=== PATIENT | female | born 1975 | race Caucasian/White ===

== ENCOUNTER → 2017-11-20 12:33 | Outpatient (CLI) | payer OTHER, SELFPAY ==
--- NOTE | 2017-11-20 12:39 | BI_ITS ---
MAMMOGRAPHY - BILATERAL SCREENING REASON FOR EXAM: Female, 41 years old. Routine annual screening examination. PERTINENT HISTORY: Aunt with breast cancer. TECHNIQUE: Digital bilateral breast ravi (3D mammographic acquisition) in the CC and MLO projections. 2-D mediolateral oblique (MLO) and craniocaudad (CC) views of both breasts were obtained. CAD: Full Field Digital Mammography with Computer Added Detection was performed. COMPARISON: None. Baseline examination. FINDINGS: Breast Composition: The breasts are extremely dense, which lowers the sensitivity of mammography. There are no dominant masses or suspicious calcifications. No other significant abnormalities are identified. BI/SCREENING MAMM (CAD), BILAT IMPRESSION: Negative screening mammogram. Yearly followup mammogram recommended. (A) ASSESSMENT CATEGORY: BIRADS Category 1: Negative. A letter regarding these results will be sent to the patient by the facility within 30 days. Approximately 10% of breast cancers are not detected by mammography. A normal mammogram should not delay biopsy of a clinically suspicious abnormality. [id number] Electronically Signed: Gabriel Prince MD at 13:52 EDT Tel [phone], Service support ,
== END ==
PROVIDERS: Family Provider Family Medicine; PCP Family Medicine; Visit Provider Family Medicine
DX: Z12.31 Encounter for screening mammogram for malignant neoplasm of breast (principal)
CPT/HCPCS: 77063; 77067

== ENCOUNTER → 2018-05-09 12:26 | Outpatient (CLI) | payer OTHER, SELFPAY ==
--- NOTE | 2018-05-09 12:28 | US_ITS ---
STUDY: ULTRASOUND OF THE FEMALE PELVIS - COMPLETE REASON FOR EXAM: Female, 42 years old. Menorrhagia. LMP: April 09, 2018. TECHNIQUE: Transabdominal and Transvaginal, the latter employing for improved detail. TECHNICAL QUALITY: Adequate. COMPARISON: None. FINDINGS: The uterus is anteverted and is in a midline position. The uterus measures 10.1 x 6.8 x 6.3 cm. There is a Nabothian cyst of the cervix. The endometrium measures 15.2 mm in thickness, and is hyperechoic. There is trace fluid in the endometrial cavity, but no demonstrated endometrial mass. There is no demonstrated myometrial mass. I.U.D. - The patient does not have an I.U.D. The right ovary is visualized. The right ovary measures 3.4 x 2.8 x 1.5 cm. Loops of peristalsing bowel were identified in the right lower quadrant. There is no right ovarian cyst or ovarian mass. There is no visualized right adnexal mass or complex lesion. There is normal arterial and normal venous vascularity. The left ovary is visualized only on transabdominal imaging. The left ovary measures 4.7 x 2.3 x 1.8 cm. This includes a well-defined hypoechoic 1.2 x 1.4 x 1.2 cm structure. There is no visualized left adnexal mass or complex lesion. There is normal arterial and normal venous vascularity. There is no fluid in the cul-de-sac. The pre void volume of the bladder was 681 ml. Polycystic ovary disease: No. US/Pelvic (Non ) IMPRESSION: 1. Thickened endometrium with trace fluid in the endometrial cavity. This may reflect physiologic change, and one might consider follow up immediately following the next 1-2 menstrual cycle to document normal physiologic thinning. 2. 1.4 cm well-defined hypoechoic lesion in the left ovary, likely a complicated cyst, likely physiologic. This also could be reassessed on a short interval follow-up study. 3. Unremarkable right ovary. Electronically Signed: Tim Gibbons MD at 12:32 EST , Service support ,
--- NOTE | 2018-05-09 12:28 | US_ITS ---
STUDY: ULTRASOUND OF THE FEMALE PELVIS - COMPLETE REASON FOR EXAM: Female, 42 years old. Menorrhagia. LMP: April 09, 2018. TECHNIQUE: Transabdominal and Transvaginal, the latter employing for improved detail. TECHNICAL QUALITY: Adequate. COMPARISON: None. FINDINGS: The uterus is anteverted and is in a midline position. The uterus measures 10.1 x 6.8 x 6.3 cm. There is a Nabothian cyst of the cervix. The endometrium measures 15.2 mm in thickness, and is hyperechoic. There is trace fluid in the endometrial cavity, but no demonstrated endometrial mass. There is no demonstrated myometrial mass. I.U.D. - The patient does not have an I.U.D. The right ovary is visualized. The right ovary measures 3.4 x 2.8 x 1.5 cm. Loops of peristalsing bowel were identified in the right lower quadrant. There is no right ovarian cyst or ovarian mass. There is no visualized right adnexal mass or complex lesion. There is normal arterial and normal venous vascularity. The left ovary is visualized only on transabdominal imaging. The left ovary measures 4.7 x 2.3 x 1.8 cm. This includes a well-defined hypoechoic 1.2 x 1.4 x 1.2 cm structure. There is no visualized left adnexal mass or complex lesion. There is normal arterial and normal venous vascularity. There is no fluid in the cul-de-sac. The pre void volume of the bladder was 681 ml. Polycystic ovary disease: No. US/Transvaginal Non- IMPRESSION: 1. Thickened endometrium with trace fluid in the endometrial cavity. This may reflect physiologic change, and one might consider follow up immediately following the next 1-2 menstrual cycle to document normal physiologic thinning. 2. 1.4 cm well-defined hypoechoic lesion in the left ovary, likely a complicated cyst, likely physiologic. This also could be reassessed on a short interval follow-up study. 3. Unremarkable right ovary. Electronically Signed: Tim Gibbons MD at 12:32 EST , Service support ,
--- OUTSIDE RECORDS SUMMARY | 2018-06-25 07:29 | XMS RPT_ITS ---
:1975 Author Organization [facility] Care Team Providers Name Role Phone Bonifacio Hicks Attending Unavailable Bonifacio Hicks Referring Unavailable Bonifacio Hicks Primary Care Unavailable Bonifacio Hicks Attending Unavailable Bonifacio Hicks Primary Care Unavailable Bonifacio Hicks Attending Unavailable Bonifacio Hikcs Referring Unavailable Bonifacio Hicks Primary Care Unavailable PROBLEMS PROBLEMS No Problem Records FoundPROCEDURES PROCEDURES No Procedure Records FoundRESULTS RESULTS TRANSVAGINAL Observed: 05/22/2018 Status: F Source: [place] NON- 12:02 PM [facility] Imaging Services [address] [place] [address] Transvaginal Non- MR#: [id number] Acct: [id number] Name: RICHY GOULD Rep #: [id number] : 1975 F 42 From: Ramiro Bolivar MD PCP: Bonifacio Hicks MD Status: REG CLI Study: Transvaginal Non- Date of Exam: 05/22/18 Exam# [id number] Ordering Dr: Bonifacio Hicks MD STUDY: ULTRASOUND OF THE FEMALE PELVIS - COMPLETE REASON FOR EXAM: Female, 42 years old. Menorrhagia LMP: 05/16/2018 TECHNIQUE: Transabdominal and Transvaginal TECHNICAL QUALITY: Adequate. COMPARISON: 05/09/2018 FINDINGS: The uterus is anteverted and is in a midline position. The uterus measures 9.8 x 5.9 x 5.2 cm. The endometrium measures 15 mm in thickness, and is hyperechoic. There is no demonstrated endometrial mass. There is no demonstrated myometrial mass. I.U.D. - The patient does not have an I.U.D. The right ovary is visualized. The right ovary measures 2.8 x 2.6 x 1.9 cm. 16 x 18 x 15 mm cyst. There is no visualized right adnexal mass or complex lesion. There is normal arterial and normal venous vascularity. The left ovary is visualized. The left ovary measures 3.4 x 3.1 x 2.1 cm. 20 x 10 x 16 mm cyst. There is no visualized left adnexal mass or complex lesion. There is normal arterial and normal venous vascularity. There is no fluid in the cul-de-sac. The pre void volume of the bladder was 50.6 ml. Polycystic ovary disease: No. US/Transvaginal Non- IMPRESSION: Interval resolution of endometrial fluid. Stable endometrial thickness. Electronically Signed: Ramiro Bolivar MD at 5:07 EST Tel , Service support , CC: Bonifacio Hicks MD Training Mgr: Signed PELVIC (NON ) Observed: 05/22/2018 Status: F Source: [place] 12:02 PM [facility] Imaging Services [address] [place] [address] Pelvic (Non ) MR#: [id number] Acct: [id number] Name: RICHY GOULD Rep #: [id number] : 1975 F 42 From: Ramiro Boilvar MD PCP: Bonifacio Hicks MD Status: REG CLI Study: Pelvic (Non ) Date of Exam: 05/22/18 Exam# [id number] Ordering Dr: Bonifacio Hicks MD STUDY: ULTRASOUND OF THE FEMALE PELVIS - COMPLETE REASON FOR EXAM: Female, 42 years old. Menorrhagia LMP: 05/16/2018 TECHNIQUE: Transabdominal and Transvaginal TECHNICAL QUALITY: Adequate. COMPARISON: 05/09/2018 FINDINGS: The uterus is anteverted and is in a midline position. The uterus measures 9.8 x 5.9 x 5.2 cm. The endometrium measures 15 mm in thickness, and is hyperechoic. There is no demonstrated endometrial mass. There is no demonstrated myometrial mass. I.U.D. - The patient does not have an I.U.D. The right ovary is visualized. The right ovary measures 2.8 x 2.6 x 1.9 cm. 16 x 18 x 15 mm cyst. There is no visualized right adnexal mass or complex lesion. There is normal arterial and normal venous vascularity. The left ovary is visualized. The left ovary measures 3.4 x 3.1 x 2.1 cm. 20 x 10 x 16 mm cyst. There is no visualized left adnexal mass or complex lesion. There is normal arterial and normal venous vascularity. There is no fluid in the cul-de-sac. The pre void volume of the bladder was 50.6 ml. Polycystic ovary disease: No. US/Pelvic (Non ) IMPRESSION: Interval resolution of endometrial fluid. Stable endometrial thickness. Electronically Signed: Ramiro Bolivar MD at 5:07 EST Tel , Service support , CC: Bonifacio Hicks MD Training Mgr: Signed TRANSVAGINAL Observed: 05/09/2018 Status: F Source: [place] NON- 12:32 PM [facility] Imaging Services [address] [place] [address] Transvaginal Non- MR#: [id number] Acct: [id number] Name: RICHY GOULD Rep #: [id number] : 1975 F 42 From: Ilir Gibbons MD PCP: Bonifacio Hicks MD Status: REG CLI Study: Transvaginal Non- Date of Exam: 05/09/18 Exam# [id number] Ordering Dr: Bonifacio Hicks MD STUDY: ULTRASOUND OF THE FEMALE PELVIS - COMPLETE REASON FOR EXAM: Female, 42 years old. Menorrhagia. LMP: April 09, 2018. TECHNIQUE: Transabdominal and Transvaginal, the latter employing for improved detail. TECHNICAL QUALITY: Adequate. COMPARISON: None. FINDINGS: The uterus is anteverted and is in a midline position. The uterus measures 10.1 x 6.8 x 6.3 cm. There is a Nabothian cyst of the cervix. The endometrium measures 15.2 mm in thickness, and is hyperechoic. There is trace fluid in the endometrial cavity, but no demonstrated endometrial mass. There is no demonstrated myometrial mass. I.U.D. - The patient does not have an I.U.D. The right ovary is visualized. The right ovary measures 3.4 x 2.8 x 1.5 cm. Loops of peristalsing bowel were identified in the right lower quadrant. There is no right ovarian cyst or ovarian mass. There is no visualized right adnexal mass or complex lesion. There is normal arterial and normal venous vascularity. The left ovary is visualized only on transabdominal imaging. The left ovary measures 4.7 x 2.3 x 1.8 cm. This includes a well-defined hypoechoic 1.2 x 1.4 x 1.2 cm structure. There is no visualized left adnexal mass or complex lesion. There is normal arterial and normal venous vascularity. There is no fluid in the cul-de-sac. The pre void volume of the bladder was 681 ml. Polycystic ovary disease: No. US/Transvaginal Non- IMPRESSION: 1. Thickened endometrium with trace fluid in the endometrial cavity. This may reflect physiologic change, and one might consider follow up immediately following the next 1-2 menstrual cycle to document normal physiologic thinning. 2. 1.4 cm well-defined hypoechoic lesion in the left ovary, likely a complicated cyst, likely physiologic. This also could be reassessed on a short interval follow-up study. 3. Unremarkable right ovary. Electronically Signed: Tim Gibbons MD at 12:32 EST , Service support , CC: Bonifacio Hicks MD Training Mgr: Signed PELVIC (NON ) Observed: 05/09/2018 Status: F Source: [place] 12:32 PM [facility] Imaging Services [address] [place] [address] Pelvic (Non ) MR#: [id number] Acct: [id number] Name: RICHY GOULD Rep #: [id number] : 1975 F 42 From: Ilir Gibbons MD PCP: Bonifacio Hicks MD Status: REG CLI Study: Pelvic (Non ) Date of Exam: 05/09/18 Exam# [id number] Ordering Dr: Bonifacio Hicks MD STUDY: ULTRASOUND OF THE FEMALE PELVIS - COMPLETE REASON FOR EXAM: Female, 42 years old. Menorrhagia. LMP: April 09, 2018. TECHNIQUE: Transabdominal and Transvaginal, the latter employing for improved detail. TECHNICAL QUALITY: Adequate. COMPARISON: None. FINDINGS: The uterus is anteverted and is in a midline position. The uterus measures 10.1 x 6.8 x 6.3 cm. There is a Nabothian cyst of the cervix. The endometrium measures 15.2 mm in thickness, and is hyperechoic. There is trace fluid in the endometrial cavity, but no demonstrated endometrial mass. There is no demonstrated myometrial mass. I.U.D. - The patient does not have an I.U.D. The right ovary is visualized. The right ovary measures 3.4 x 2.8 x 1.5 cm. Loops of peristalsing bowel were identified in the right lower quadrant. There is no right ovarian cyst or ovarian mass. There is no visualized right adnexal mass or complex lesion. There is normal arterial and normal venous vascularity. The left ovary is visualized only on transabdominal imaging. The left ovary measures 4.7 x 2.3 x 1.8 cm. This includes a well-defined hypoechoic 1.2 x 1.4 x 1.2 cm structure. There is no visualized left adnexal mass or complex lesion. There is normal arterial and normal venous vascularity. There is no fluid in the cul-de-sac. The pre void volume of the bladder was 681 ml. Polycystic ovary disease: No. US/Pelvic (Non ) IMPRESSION: 1. Thickened endometrium with trace fluid in the endometrial cavity. This may reflect physiologic change, and one might consider follow up immediately following the next 1-2 menstrual cycle to document normal physiologic thinning. 2. 1.4 cm well-defined hypoechoic lesion in the left ovary, likely a complicated cyst, likely physiologic. This also could be reassessed on a short interval follow-up study. 3. Unremarkable right ovary. Electronically Signed: Tim Gibbons MD at 12:32 EST , Service support , CC: Bonifacio Hicks MD Training Mgr: Signed SCREENING MAMM (CAD), Observed: 11/20/2017 Status: F Source: [place] 12:39 PM [facility] Imaging Services [address] [place] [address] SCREENING MAMM (CAD), BILEKTA MR#: [id number] Acct: [id number] Name: RICHY GOULD Rep #: [id number] : 1975 F 41 From: Gabriel Prince MD PCP: Bonifacio Hicks MD Status: REG CLI Study: SCREENING MAMM (CAD), BILAT Date of Exam: 11/20/17 Exam# [id number] Ordering Dr: Bonifacio Hicks MD MAMMOGRAPHY - BILATERAL SCREENING REASON FOR EXAM: Female, 41 years old. Routine annual screening examination. PERTINENT HISTORY: Aunt with breast cancer. TECHNIQUE: Digital bilateral breast ravi (3D mammographic acquisition) in the CC and MLO projections. 2-D mediolateral oblique (MLO) and craniocaudad (CC) views of both breasts were obtained. CAD: Full Field Digital Mammography with Computer Added Detection was performed. COMPARISON: None. Baseline examination. FINDINGS: Breast Composition: The breasts are extremely dense, which lowers the sensitivity of mammography. There are no dominant masses or suspicious calcifications. No other significant abnormalities are identified. BI/SCREENING MAMM (CAD), BILAT IMPRESSION: Negative screening mammogram. Yearly followup mammogram recommended. (A) ASSESSMENT CATEGORY: BIRADS Category 1: Negative. A letter regarding these results will be sent to the patient by the facility within 30 days. Approximately 10% of breast cancers are not detected by mammography. A normal mammogram should not delay biopsy of a clinically suspicious abnormality. [id number] Electronically Signed: Gabriel Prince MD at 13:52 EDT Tel [phone], Service support , CC: Bonifacio Hicks MD Training Mgr: Signed ALLERGIES ALLERGIES No Allergies Records FoundENCOUNTERS ENCOUNTERS ADMIT/DISCHARGE ACCOUNT ADMITTING ENCOUNTER LOCATION SOURCE NUMBER CLASS 05/22/2018 [id number] Amb[place] [facility] ing:US Repository 05/09/2018 [id number] Ambulatory [place] [facility] ing:OPUS Repository 11/20/2017 [id number] Ambulatory [place] 5 [facility] ing:OPBI Repository PAYERS PAYERS ENCOUNTER GUARANTOR PAYER SUBSCRIBER SOURCE 05/22/2018 RICHY A Primary RICHY A [place] [id number] Insurance:[employer] SNYDERDOB: [facility] CARE [address]lk [id number] Number: Repository [address]Rub: 330 [id number] [phone] () Date:[id number] [address] [address]SP: 05/22/2018 Secondary NOT GIVENUNK [place] Insurance:SELF PAY [facility] Number: Effective Repository Date:2018-05-13 05/09/2018 RICHY A Primary RICHY A [place] [id number] [facility] SN[facility]DERD[facility]: [place] [id number] Number: Repository [id number]: 330 [id number] [phone] () Date:[id number] [place] [id number]: 05/09/2018 Secondary NOT GIVENUNK [place] Insurance:SELF PAY [facility] Number: Effective Repository Date:2018-05-03 11/20/2017 RICHY A Primary RICHY A [place] [id number] [facility] SNYDERDOB: [address] [id number] Number: Repository [id number]: 330 [id number] [phone] () Date:2806-26-92[address] [place] [id number]: 11/20/2017 Secondary NOT GIVENUNK [place] Insurance:SELF PAY [facility] Number: Effective Repository Date:2017-11-02
== END ==
PROVIDERS: Family Provider Family Medicine; PCP Family Medicine; Referring Provider Family Medicine; Visit Provider Family Medicine
DX: N92.0 Excessive and frequent menstruation with regular cycle (principal)
CPT/HCPCS: 76830; 76856; 93976

== ENCOUNTER → 2018-05-22 12:00 | Outpatient (CLI) | payer OTHER, SELFPAY ==
--- NOTE | 2018-05-22 12:02 | US_ITS ---
STUDY: ULTRASOUND OF THE FEMALE PELVIS - COMPLETE REASON FOR EXAM: Female, 42 years old. Menorrhagia LMP: 05/16/2018 TECHNIQUE: Transabdominal and Transvaginal TECHNICAL QUALITY: Adequate. COMPARISON: 05/09/2018 FINDINGS: The uterus is anteverted and is in a midline position. The uterus measures 9.8 x 5.9 x 5.2 cm. The endometrium measures 15 mm in thickness, and is hyperechoic. There is no demonstrated endometrial mass. There is no demonstrated myometrial mass. I.U.D. - The patient does not have an I.U.D. The right ovary is visualized. The right ovary measures 2.8 x 2.6 x 1.9 cm. 16 x 18 x 15 mm cyst. There is no visualized right adnexal mass or complex lesion. There is normal arterial and normal venous vascularity. The left ovary is visualized. The left ovary measures 3.4 x 3.1 x 2.1 cm. 20 x 10 x 16 mm cyst. There is no visualized left adnexal mass or complex lesion. There is normal arterial and normal venous vascularity. There is no fluid in the cul-de-sac. The pre void volume of the bladder was 50.6 ml. Polycystic ovary disease: No. US/Transvaginal Non- IMPRESSION: Interval resolution of endometrial fluid. Stable endometrial thickness. Electronically Signed: Ramiro Bolivar MD at 5:07 EST Tel , Service support ,
--- NOTE | 2018-05-22 12:02 | US_ITS ---
STUDY: ULTRASOUND OF THE FEMALE PELVIS - COMPLETE REASON FOR EXAM: Female, 42 years old. Menorrhagia LMP: 05/16/2018 TECHNIQUE: Transabdominal and Transvaginal TECHNICAL QUALITY: Adequate. COMPARISON: 05/09/2018 FINDINGS: The uterus is anteverted and is in a midline position. The uterus measures 9.8 x 5.9 x 5.2 cm. The endometrium measures 15 mm in thickness, and is hyperechoic. There is no demonstrated endometrial mass. There is no demonstrated myometrial mass. I.U.D. - The patient does not have an I.U.D. The right ovary is visualized. The right ovary measures 2.8 x 2.6 x 1.9 cm. 16 x 18 x 15 mm cyst. There is no visualized right adnexal mass or complex lesion. There is normal arterial and normal venous vascularity. The left ovary is visualized. The left ovary measures 3.4 x 3.1 x 2.1 cm. 20 x 10 x 16 mm cyst. There is no visualized left adnexal mass or complex lesion. There is normal arterial and normal venous vascularity. There is no fluid in the cul-de-sac. The pre void volume of the bladder was 50.6 ml. Polycystic ovary disease: No. US/Pelvic (Non ) IMPRESSION: Interval resolution of endometrial fluid. Stable endometrial thickness. Electronically Signed: Ramiro Bolivar MD at 5:07 EST Tel , Service support ,
== END ==
PROVIDERS: Family Provider Family Medicine; PCP Family Medicine; Referring Provider Family Medicine; Visit Provider Family Medicine
DX: N92.0 Excessive and frequent menstruation with regular cycle (principal)
CPT/HCPCS: 76830; 76856; 93976

== ENCOUNTER → 2021-05-07 08:14 | Outpatient (CLI) | payer OTHER, SELFPAY ==
--- NOTE | 2021-05-07 08:16 | BI_ITS ---
MAMMOGRAPHY - BILATERAL SCREENING REASON FOR EXAM: Female, 45 years old. Routine annual screening examination. PERTINENT HISTORY: Aunt with breast cancer. TECHNIQUE: Digital bilateral breast kerline (3D mammographic acquisition) in the CC and MLO projections. 2-D mediolateral oblique (MLO) and craniocaudad (CC) views of both breasts were obtained. CAD: Full Field Digital Mammography with Computer Added Detection was performed. COMPARISON: Comparison is made with prior study dated 11/20/2017. FINDINGS: Breast Composition: The breasts are extremely dense, which lowers the sensitivity of mammography. There are no dominant masses or suspicious calcifications. No other significant abnormalities are identified. There has been no significant change since the prior study. BI/SCRN MAMM (CAD)W/KERLINE BILAT IMPRESSION: Stable bilateral screening mammogram. Yearly follow-up mammogram recommended. (A) ASSESSMENT CATEGORY: BIRADS Category 1: Negative. A letter regarding these results will be sent to the patient by the facility within 30 days. Approximately 10% of breast cancers are not detected by mammography. A normal mammogram should not delay biopsy of a clinically suspicious abnormality. [id number] Electronically Signed: Gabriel Prince MD at 8:33 EST , Service support ,
[2021-05-07 09:07] LABS: Absolute Lymphocyte Count 1.39 X10^3/uL (0.83-4.51); Absolute Neutrophil Count 6.2 X10^3/uL (2.0-7.7); Basophil# 0.06 X10^3/uL; Basophil% 0.7 % (0-1); Eosinophil# 0.08 X10^3/uL; Eosinophils% 0.9 % (0-5); Hemoglobin 11.8 g/dL (12.0-15.0); Lymphocyte # 1.39 X10^3/ul (0.83-4.51); Lymphocyte % 16.1 % (19-41); Mean Corp Hgb Conc 32.8 g/dL (32-36); Mean Corpuscular Hgb 32.2 pg (27.0-32.0); Mean Corpuscular Volume 98.4 fL (81-99); Mean Platelet Vol. 10.8 fl (6.2-12.0); Monocyte# 0.93 X10^3/uL; Monocyte% 10.7 % (0-10); NRBC Flagged by Analyzer 0 % (0-5); Neutrophil # 6.15 X10^3/uL (2.7-7.7); Platelet Count 254 K/mm3 (150-450); RBC Distribution Width CV 13.9 % (11.6-14.6); RBC Distribution Width SD 50.6 fl (35.1-43.9); Red Blood Count 3.66 M/mm3 (4.2-5.4); White Blood Count 8.7 K/mm3 (4.4-11.0)
[2021-05-07 09:45] LABS: ALB/GLOB Ratio 0.9 RATIO (0.9-2.4); AST(SGOT) 14 U/L (15-37); Alanine Aminotransfer ALT/SGPT 17 U/L (13-56); Albumin, Serum 3.3 g/dL (3.2-5.0); Alkaline Phosphatase 65 U/L (45-117); Anion Gap 6 (5-15); BUN 11 mg/dL (7-18); Calcium,Total 8.2 mg/dL (8.5-10.1); Chloride 107 mmol/L (98-107); Cholesterol 131 mg/dL (200); Creatinine, Serum 0.73 mg/dL (0.55-1.02); EST Glomerular Filtration Rate 92 mL/min (>60); Est Glom Filt Rate - Afr Amer 111 mL/min (>60); Globulin 3.8 g/dL (2.2-4.2); Glucose 92 mg/dL (74-106); High Density Lipoprotein 45 mg/dL; Potassium 3.8 mmol/L (3.5-5.1); Protein, Total 7.1 g/dL (6.4-8.2); Sodium Level 140 mmol/L (136-145); Thyroid Stim Hormone (TSH) 9.27 uIU/mL (0.358-3.74); Triglycerides 68 mg/dL; Very Low Density Lipoprotein 14 mg/dL (5-40)
== END ==
PROVIDERS: PCP Family Medicine; Referring Provider Family Medicine; Visit Provider Family Medicine
DX: Z12.31 Encounter for screening mammogram for malignant neoplasm of breast (principal); E03.9 Hypothyroidism, unspecified; Z80.3 Family history of malignant neoplasm of breast
CPT/HCPCS: 36415; 77063; 77067; 80053; 80061; 84443; 85025

== ENCOUNTER 2022-11-16 11:52 | Day surgery (SDC) | payer OTHER, SELFPAY ==
--- NOTE | 2022-11-15 17:20 | PCM.HP.BLA ---
History and Physical Date of Admission: 11/16/22 Pre-Op History and Physical ? HPI: The patient is a 46 year old female presenting for pre-operative visit. She is scheduled for Hysteroscopy D&C and polypectom with symphion and hilda endoemtrial ablation , for AUB, endometrial polyp on 11/16/22. Procedure discussed along with risks, benefits and complications. Other alternatives discussed for management. Consent form signed? Yes. ? ? PAST MEDICAL HISTORY PAST MEDICAL HISTORY Diagnosis Date ? Acute sinusitis 09/20/2020 ? Anxiety 01/04/2017 ? Depression 01/04/2017 ? Hypothyroid ? ? IBS (irritable bowel syndrome) ? ? Immunization due 12/19/2018 ? Menorrhagia 05/03/2018 ? Well adult health check 10/29/2017 ? ? PAST SURGICAL HISTORY PAST SURGICAL HISTORY Procedure Laterality Date ? TUBAL LIGATION HX ? CURRENT MEDICATIONS Current Outpatient Medications Medication Sig Dispense Refill ? levothyroxine (SYNTHROID) 137 mcg tablet Take 1 tablet by mouth once daily. 90 tablet 3 ? No current facility-administered medications for this visit. ? ? ALLERGIES: Cefdinir, Doxycycline, Peanuts, and Tree Nuts ? PERSONAL HISTORY: SOCIAL HISTORY Social History ? Tobacco Use ? Smoking status: Every Day ? ? Years: 20.00 ? ? Types: Cigarettes ? Smokeless tobacco: Never Vaping Use ? Vaping Use: Never used Substance Use Topics ? Alcohol use: Not Currently ? Drug use: Never ? FAMILY HISTORY: FAMILY HISTORY No family history on file. ? REVIEW OF SYMPTOMS: negative except as noted above PHYSICAL EXAMINATION: ? VITALS: Blood pressure 100/62, weight 151 lb (68.5 kg), last menstrual period 10/31/2022. ? GENERAL: The patient is well nourished, well hydrated in no acute distress. , The patient is oriented to time, place, and person. NECK: full range of motion ? GENITALIA: Normal external genitalia, Urethral meatus normal, Bladder nontender, normal vagina and normal vaginal tone, normal cervix, normal uterus, size and consistency, normal adnexa without masses or tenderness, and perineum WNL ? ? IMPRESSION: AUB, heavy menses, endometrial Polyp ? PLAN: Hysteroscopy, D&C, Polypectomy, D&C, endometrial Ablation ? Pt has been counseled on risks/benefits and alternatives of surgery including but not limited to anesthesia, bleeding, infection, uterine perforation with subsequent injury to pelvic structures including bowel, bladder, ureters and vessels. Pt wishes to proceed with surgery at this time. Consent signed Pre and post op instructions reviewed ? Emb performed today ? I have reviewed and updated past medical and surgical history, medications and allergies Kamryn Fonseca MD ?1:18 PM
[2022-11-16 12:20] VITALS: BP 97/53; PULSE 66; RESP 16; TEMP 36.6; O2SAT 100; BMI 20.6
[2022-11-16 12:22] LABS: Internal QC Validated? YES +Cl - CLEAR BKGD; Pregnancy, Urine Negative Negative
[2022-11-16] MEDS: Lactated Ringers 1,000 ML 15 ML IV (12:30)
[2022-11-16 12:45] LABS: Hematocrit 41.2 % (37-47); Mean Corpuscular Hgb 33.3 pg (27.0-32.0); Mean Corpuscular Volume 97.9 fL (81-99); Mean Platelet Vol. 10.5 fl (6.2-12.0); Platelet Count 277 K/mm3 (150-450); RBC Distribution Width CV 13.8 % (11.6-14.6); RBC Distribution Width SD 49.1 fl (35.1-43.9); Red Blood Count 4.21 M/mm3 (4.2-5.4); White Blood Count 7.3 K/mm3 (4.4-11.0)
--- NOTE | 2022-11-16 13:35 | EMB_PTH ---
PATIENT: RICHY GOULD LOC: [facility] U#:[id number] AGE/SX: 46/F ROOM: RE11/16/[address]: Dr. Kamryn Garrido, MDDOB: 1975 BED: DIS: 11/16/2022 SPEC #: [id number] RECD: 11/16/22 16:15 STATUS: YULISSA VIJAY #: [id number] LAITH: 11/16/22 13:[address]: Kamryn Garrido DEPT: SURGICAL PATHOLOGY RECD BY: Monica Tatum ENTERED: 11/17/22 07:39 SP TYPE: ENDOM BX/C DARYNHR DR: Dr. Bonifacio Hicks MD Tissues: Endometrium, NOS Procedures: Surgery Specimen Level IV HEADER OPERATION: Hysteroscopy, D & C, polypectomy, endometrial ablation, Symphion PRE-OP DIAGNOSIS: Abnormal uterine bleeding, endometrial polyp TISSUE SUBMITTED: Endometrial curettings, polyp, tissue MICROSCOPIC DIAGNOSIS Endometrial curettings and polyp: Polypoid fragments of benign secretory endometrium. Rare fragments of benign endocervix and squamous mucosa. AM:klever 11/20/2022 MICROSCOPIC DESCRIPTION Slides are reviewed. GROSS DESCRIPTION Received in fixative is one container labeled with the patient's name and designated endometrial curettings and polyp. The specimen consists of multiple irregular fragments of dark mccarty soft tissue that in aggregate measure 5.0 x 5.0 x 0.2 cm. The specimen is totally submitted in two cassettes. / AM:klever 11/17/2022 TC:5 CPT: 50520
--- NOTE | 2022-11-16 14:22 | DCINST_ITS ---
Discharge Instructions Procedure D&C Diet Discharge Diet: No restrictions Activity May resume sexual activity in: 1 week Dressing / Incision Call your doctor if you observe: Fever of 101 or Higher, Inability to urinate, Using more than 1 pad per hour and Uncontrolled pain Follow Up Care Please Follow Up With: Kamryn Garrido MD When: 1-2 weeks post OP if you need an appointment please call [phone] Test Results: Test results from this visit will be discussed in further detail at your follow- up appointment, if applicable. Discharge Plan Admission Attending Provider: Kamryn Garrido Primary Care Provider: Bonifacio Hicks Discharge Orders/Prescriptions Prescriptions: No Action levothyroxine 125 mcg Tablet 137 mcg PO DAILY Referrals / Follow Up: Bonifacio Hicks MD [Primary Care Provider] - Disposition Disposition (needs filled in before D/C Order can be placed): Home, Self Care
--- NOTE | 2022-11-16 14:23 | OP.PCM_ITS ---
Report of Operation Date of Procedure: 11/16/22 Pre-Operative Diagnosis: AUB, Endometrial polyp Post-Operative Diagnosis: same Surgery/Procedure Performed:: hysteroscopy, D&C, polypectomy, Nettie endometrial ablation Description of Surgical Findings:: Thickened endometrium with polypoid appearing tissiue Surgeon: Kamryn Garrido job change crew member: None Type of Anesthesia: MAC Specimen's removed: endometrial curettings, endometrial polyps Estimated Blood Loss (mL): 5cc Fluids Replaced: 500 Description of Procedure: after informed consent was obtained patient taken to the operating room she is placed in supine position she is given anesthesia simply self insert she is prepped draped normal sterile fashion. Bladder was drained prior to the start of the procedure. At this time the weighted speculum was placed the posterior fornix of the vagina then a single-tooth tenaculum was used to grasp the anterior lip of the cervix. At this time the uterus was sounded to approximately8 cm the endocervical canal sounded to 3.5 cm. Next cervix was dilated in incremental fashion. Once adequate dilatation was achieved the hysteroscope was inserted using normal saline as distention medium. On hysteroscopy there was thick endometrial tissue with polypoid appearing tissue. Both tubal ostia were visualized. symphion resection device used- MAP was low at 60, cavity pressure was difficult to maintain, once majority of tissue was removed gentle sharp curettage was performed which yiled moderate amount of endometrial tissue. tissue will be sent to pathology for evaluation. At this time the Nettie device was opened. The Nettie was set at 4.5 cm. The device was activated. Prior to activation the field test was performed and cavity was intact. The device was then fired and activated for 120 seconds. Once the 120 seconds was completed the device was removed intact and the tenaculum was removed. Good hemostasis was appreciated. Grafts/Implants Used: none Procedure Start Time: 14:33 Procedure Stop Time: 14:51 Complications none Admit VTE Documentation VTE Present on Admission: Yes VTE Mechan Device Prophylaxis: SCD's VTE Pharm Prophylaxis ordered?: No Reason prophylaxis not ordered:: Procedure Not Indicated
[2022-11-16 15:00] VITALS: BP 102/47; BP 97/53; PULSE 63; RESP 16; TEMP 37.9; O2SAT 95
[2022-11-16 15:05] VITALS: BP 93/58; BP 97/53; PULSE 67; RESP 16; O2SAT 95
[2022-11-16 15:10] VITALS: BP 86/62; BP 97/53; PULSE 56; RESP 18; O2SAT 96
[2022-11-16 15:15] VITALS: BP 91/56; BP 97/53; PULSE 57; RESP 16; TEMP 36.9; O2SAT 97
[2022-11-16] MEDS: Ketorolac 30 MG/ML Syringe IV (15:33)
[2022-11-16 15:54] VITALS: BP 97/53
== END 2022-11-16 16:02 | disposition home or self-care (01) ==
LOC: SDC 11:55 → AC 12:02
PROVIDERS: PCP Family Medicine; Referring Provider Obstetrics & Gynecology; Visit Provider Obstetrics & Gynecology
PROC: 0UB98ZZ Excision of Uterus, Via Natural or Artificial Opening Endoscopic (ICD-10-PCS; CPT 58558; principal; 2022-11-16 13:20)
DX: N84.0 Polyp of corpus uteri (principal); E07.9 Disorder of thyroid, unspecified; Z79.890 Hormone replacement therapy; F17.210 Nicotine dependence, cigarettes, uncomplicated
CPT/HCPCS: 58563; 00952; 81025; 85027; 88305; J7120; J2405

== ENCOUNTER 2022-12-26 14:07 | Emergency (ER) | payer OTHER, SELFPAY ==
[2022-12-26 14:08] VITALS: BP 111/65; PULSE 72; RESP 18; TEMP 36.6; O2SAT 99; BMI 20.5
--- NOTE | 2022-12-26 15:33 | CT_ITS ---
We are attempting to reach an attending provider to discuss findings. An addendum with communication details will be sent when the communication is complete. STUDY: CTA CHEST REASON FOR EXAM: Female, 46 years old. pain, sob TECHNIQUE: The examination was performed with the intravenous administration of 100 cc of IV Isovue 300 contrast material. Post-processing of the angiographic images was performed, with axial imaging and 3D reconstruction. MIPS images were obtained. Individualized dose optimization techniques were used for this CT. COMPARISON: None. FINDINGS: Normal enhancement of the bilateral peripheral pulmonary arteries. Right pulmonary emboli in the upper and lower lobe branches. Normal thoracic aorta and visualized great vessels. There is no demonstrated aortic dissection. Normal heart and pericardium with no evidence for calcifications of the coronary arteries. Normal mediastinum. Normal hilar regions. Normal visualized trachea and bronchi. The lungs are well expanded. Normal pulmonary parenchyma. Normal pleura. Normal chest wall structures. Normal osseous structures. Normal visualized upper abdomen. CT/CTA Chest W/WO Contrast IMPRESSION: (NOT LISTED IN ORDER OF SIGNIFICANCE) Right lower lobe PE. There is no heart strain. Non standard communication findings protocol was initiated. 12/26/2022 5:18 PM Electronically Signed: Paul Enriquez MD at 17:19 EDT ,
--- NOTE | 2022-12-26 15:33 | EKG12_ITS ---
Test Reason : ABNORMAL Blood Pressure : / mmHG Vent. Rate : 068 BPM Atrial Rate : 068 BPM P-R Int : 156 ms QRS Dur : 078 ms QT Int : 434 ms P-R-T Axes : 063 262 025 degrees QTc Int : 461 ms Normal sinus rhythm Right superior axis deviation Low voltage QRS Nonspecific T wave abnormality Prolonged QT Abnormal ECG Confirmed by JULIA WILLIS, FELISHA ([id number]), digital editor SHAYAN HASTINGS ([id number]) on 12/28/2022 8:54:09 AM Referred By: LEEANNA Confirmed By:TIMBO DUMONT MD
--- NOTE | 2022-12-26 15:34 | EX.ED.DYSGE1 ---
HPI History of Present Illness Chief Complaint: Shortness of Breath Informant: patient Narrative Narrative: Patient presents from PCPs office due to concern for OR. Patient states she in the hospital [place] recently with fever, headache, neck pain, leg swelling. She had venous ultrasound that was negative. She had COVID and flu swabs that were negative. Patient states she was treated with an antibiotic. She also had a recent surgery. While there, patient reportedly had an EKG that was abnormal. She followed up with her PCP today where repeat EKG in the office was read as abnormal and she was sent to the emergency room. On review of these EKGs, patient has a very tiny uptick prior to a large Q-wave in V1 and V2. This is being read by the computer as possible anterior infarct, age undetermined. Patient states that after being sick for 2 weeks, she is finally starting to feel better. She still gets fatigued easily but states that is understandable given her recent illness. She has not had a fever in the last 5 days. She reports some shortness of breath with exertion and some back pain. She denies anterior chest pain. [facility] Medical History History of Holter monitoring History of IBS Injury of head and neck Leg cramps Low iron MVP (mitral valve prolapse) Smoker Thyroid disease Wears contact lenses Home Medications levothyroxine 125 mcg tablet 137 mcg PO DAILY 11/09/22 [History Last Taken 11/16/22 06:30] rivaroxaban 15 mg (42)-20 mg (9) tablets in a starter pack (Xarelto DVT-PE Treatment 30-Day Starter) See Rx Instructions PO .COMPLEX #51 tabs 12/26/22 [Rx Last Taken Unknown] Allergy/AdvReac Type Severity Reaction Status Date / Time doxycycline Allergy Rash Verified 12/26/22 14:10 peanut [peanuts] Allergy Swelling Verified 12/26/22 14:10 Surgical History Hx of tubal ligation Social History Smoking Status: Current every day smoker tobacco type: cigarettes ROS ROS ED Constitutional Constitutional ED: Denies chills or fever(s) Eyes Eyes: Denies change in vision or discharge from eye(s) ENT ENT ED: Denies discharge from eye(s), rhinorrhea or sore throat Cardiovascular Cardiovascular: Denies chest pain or palpitations Respiratory/Chest Respiratory/Chest: Reports dyspnea; Denies cough Gastrointestinal Gastrointestinal: Denies abdominal pain, nausea or vomiting Genitourinary Genitourinary ED: Denies dysuria Musculoskeletal Musculoskeletal: Reports back pain; Denies extremity pain Integumentary Denies Abrasions or rash Neurologic Neurologic: Reports headache(s); Denies weakness Psychiatric Psychiatric: Denies anxiety or depression Allergic/Immunologic Allergic/Immunologic ED: Denies lip swelling or urticaria EXAM Physical Exam Const Vital Signs: 12/26/22 14:08 12/26/22 15:13 12/26/22 17:16 Temperature 97.8 F Temperature Source Temporal Pulse Rate 72 65 Respiratory Rate 18 18 Respiratory Effort Normal Respiratory Depth Normal Respiratory Pattern Normal Blood Pressure 111/65 Blood Pressure Mean 80 Pulse Ox 99 98 Oxygen Delivery Method Room Air Room Air Positive well nourished and well developed General Appearance ED: well developed HEENT Reports normocephalic and head/scalp atraumatic Eyes PERRL and EOMs intact bilaterally Neck supple Chest Wall inspection of chest normal and palpation of chest normal Resp normal respiratory effort and clear to auscultation bilaterally Cardio regular rate and regular rhythm GI normal to inspection, nondistended, normoactive bowel sounds Palpation: soft Back/Spine no CVA tenderness Extremity normal to inspection Neuro oriented x3 and no sensory deficits noted Sensorium / Orientation: alert Motor Exam: strength 5/5 throughout Skin no rashes or lesions noted MDM MDM MDM Narrative Medical decision making narrative: Patient placed on fiscal analyst. EKG obtained to evaluate for cardiac arrhythmia/ischemia. Labwork obtained to evaluate for leukocytosis, anemia, and electrolyte derangement. CTA of the chest obtained to evaluate for possible PE. Lab Data Attestation: I reviewed the patient's lab results. Labs: Laboratory Results - last 24 hr 12/26/22 15:40 WBC 8.0 RBC 3.85 L Hgb 12.5 Hct 37.7 MCV 97.9 MCH 32.5 H MCHC 33.2 RDW Std Deviation 48.2 H RDW Coeff of Shikha 13.5 Plt Count 430 MPV 9.2 Immature Gran % (Auto) 0.600 Neut % (Auto) 61.7 Lymph % (Auto) 20.3 [place] % (Auto) 9.3 Eos % (Auto) 7.0 H Baso % (Auto) 1.1 H Absolute Neuts (auto) 5.0 Absolute Lymphs (auto) 1.63 Nucleated RBC % 0 Sodium 137 Potassium 3.8 Chloride 105 Carbon Dioxide 29.0 Anion Gap 3 L BUN 9 Creatinine 0.65 Estim Creat Clear Calc 116.26 Est GFR (MDRD) Af Amer 127 Est GFR (MDRD) Non-Af 105 BUN/Creatinine Ratio 13.9 Glucose 93 Calcium 8.5 Troponin I High Sens 8 B-Natriuretic Peptide 20.5 Radiography Diagnostic Testing: Clinical Impression(s) from Imaging Studies Chest CTA 12/26/22 15:33 IMPRESSION: (NOT LISTED IN ORDER OF SIGNIFICANCE) Right lower lobe PE. There is no heart strain. Non standard communication findings protocol was initiated. 12/26/2022 5:18 PM Electronically Signed: Paul Enriquez MD at 17:19 EDT Reading Location ID and State: [facility] / [place] , Service support , EKG Initial EKG: Attestation: I personally reviewed and interpreted this EKG as follows: Interpretation: Sinus Rhythm (Sinus at 68 with no acute ischemia.) Treatment and Re-Evaluation :: CBC was normal white count with a hemoglobin of 12.5. Chemistry studies unremarkable. Troponin is normal at 8. BNP is 20. CTA of the chest reveals a right-sided PE. No evidence of cardiac strain. Test results are discussed with the patient. I will start her on Xarelto, first dose given here. She will follow with her PCP within 1 month. Return instructions given. Discharge Plan Triage Chief Complaint: Shortness of Breath Other Complaint: General Illness ED Provider: Concepcion Teran Dx/Rx/DC Orders Clinical Impression: Pulmonary embolism Instructions: Embolism Pulmonary Dc Prescriptions: New Xarelto DVT-PE Treat 30d Start 15 mg (42)- 20 mg (9) tablets,dose pack See Rx Instructions .ROUTE .COMPLEX Qty: 51 0RF Rx Instructions: take one-15 mg tablet twice daily for 21 days, then one-20 mg tablet once daily; must take with meal/food No Action levothyroxine 125 mcg Tablet 137 mcg PO DAILY Primary Care Provider: Jaz Turner Referrals: Jaz Turner, ACCOUNTING MANAGER CONTROLLER-C [Primary Care Provider] - 1-2 Weeks Disposition Disposition: Home, Self Care
[2022-12-26 15:54] LABS: Absolute Lymphocyte Count 1.63 X10^3/uL (0.83-4.51); Basophil# 0.09 X10^3/uL; Basophil% 1.1 % (0-1); Eosinophil# 0.56 X10^3/uL; Hematocrit 37.7 % (37-47); Hemoglobin 12.5 g/dL (12.0-15.0); Lymphocyte # 1.63 X10^3/ul (0.83-4.51); Lymphocyte % 20.3 % (19-41); Mean Corp Hgb Conc 33.2 g/dL (32-36); Mean Corpuscular Hgb 32.5 pg (27.0-32.0); Mean Corpuscular Volume 97.9 fL (81-99); Mean Platelet Vol. 9.2 fl (6.2-12.0); Monocyte# 0.75 X10^3/uL; Monocyte% 9.3 % (0-10); NRBC Flagged by Analyzer 0 % (0-5); Neutrophil # 4.96 X10^3/uL (2.7-7.7); Neutrophil % 61.7 % (47-70); Platelet Count 430 K/mm3 (150-450); RBC Distribution Width CV 13.5 % (11.6-14.6); RBC Distribution Width SD 48.2 fl (35.1-43.9); Red Blood Count 3.85 M/mm3 (4.2-5.4)
[2022-12-26 16:16] LABS: Anion Gap 3 (5-15); BUN 9 mg/dL (7-18); BUN/Creat Ratio 13.9 RATIO (10-20); Calcium,Total 8.5 mg/dL (8.5-10.1); Chloride 105 mmol/L (98-107); Creatinine, Serum 0.65 mg/dL (0.55-1.02); EST Glomerular Filtration Rate 105 mL/min (>60); Est Glom Filt Rate - Afr Amer 127 mL/min (>60); Estimated Creatinine Clearance 116.26 ml/min; Glucose 93 mg/dL (74-106); Potassium 3.8 mmol/L (3.5-5.1); Sodium Level 137 mmol/L (136-145); Troponin-I HS 8 pg/mL (3.0-54.0)
[2022-12-26 16:19] LABS: BNP,B-Type NATRIURETIC PEPTIDE 20.5 pg/mL (0-100)
[2022-12-26] MEDS: 0.9% Normal Saline 1,000 ML 1000 ML IV (16:41)
[2022-12-26 17:16] VITALS: PULSE 65; RESP 18; O2SAT 98
[2022-12-26] MEDS: Rivaroxaban 15 MG Tablet PO (17:42)
== END 2022-12-26 17:46 | disposition home or self-care (01) ==
PROVIDERS: Emergency Provider Emergency Medicine; PCP Nurse Practitioner Family; Visit Provider Emergency Medicine
DX: I26.99 Other pulmonary embolism without acute cor pulmonale (principal); F17.210 Nicotine dependence, cigarettes, uncomplicated; Z79.890 Hormone replacement therapy; E07.9 Disorder of thyroid, unspecified
CPT/HCPCS: 71275; 80048; 83880; 84484; 85025; 93005; 96360; 99284; J7030; Q9967

== ENCOUNTER 2023-12-14 12:32 | Emergency (ER) | payer OTHER, SELFPAY ==
[2023-12-14 12:33] VITALS: BP 106/48; PULSE 46; RESP 18; TEMP 37.1; O2SAT 100; BMI 23.3
--- NOTE | 2023-12-14 12:52 | EX.ED.DYSGE1 ---
HPI <JOSE Storm - Last Filed: 12/14/23 16:59> History of Present Illness Chief Complaint: Abd Pain Narrative Narrative: 47 year old female presents with abdominal pain. She has irregular menses since fibroid removal and uterine ablation a year ago at [facility]. She has light spotting x 3 days earlier this week, 1 day of no bleeding, then 1 day of heavier bleeding two days ago with bilateral lower abdominal pain. When the bleeding stopped she continued to have abdominal pain mostly in the RLQ radiating to the groin and it became more severe this morning and radiates to her right lower back. She has no urinary symptoms. She is nauseous without vomiting. No fever or chills. She also has history of bilateral tubal ligation. PFSH <JOSE Storm - Last Filed: 12/14/23 16:59> [facility] Medical History History of Holter monitoring History of IBS Injury of head and neck Leg cramps Low iron MVP (mitral valve prolapse) Smoker Thyroid disease Wears contact lenses Home Medications ?Medication ?Instructions ?Recorded ?Last Taken ?Type levothyroxine 125 mcg tablet 137 mcg PO DAILY 11/09/22 11/16/22 06:30 History rivaroxaban 15 mg (42)-20 mg (9) See Rx Instructions PO .COMPLEX 12/26/22 Unknown Rx tablets in a starter pack (Xarelto #51 tabs DVT-PE Treatment 30-Day Starter) Allergy/AdvReac Type Severity Reaction Status Date / Time doxycycline Allergy Rash Verified 12/14/23 12:33 peanut (peanuts) Allergy Swelling Verified 12/14/23 12:33 Surgical History Hx of tubal ligation Social History Smoking Status: Current every day smoker tobacco type: cigarettes ROS <JOSE Storm - Last Filed: 12/14/23 16:59> ROS ED ROS Narrative Constitutional: Negative for fever, chills, malaise. CVS: Negative for chest pain. Respiratory: Negative for shortness of breath. GI: Positive for abdominal pain. Negative for nausea, vomiting, diarrhea, constipation, melena, hematochezia. : Negative for dysuria, hematuria or frequency. EXAM <JOSE Storm - Last Filed: 12/14/23 16:59> Physical Exam Narrative Exam Narrative: CONST: Patient sitting in no acute distress. EYES: Normal inspection. NECK: Normal inspection. RESP: No respiratory distress, CTAB. CVS: Regular rate and rhythm, no murmur, no gallop. ABD: Soft with mild tenderness RLQ, no guarding or rebound, nondistended, no hepatosplenomegaly. Back: Normal inspection, no CVA tenderness. SKIN: Color normal, no rash, warm, dry, intact. EXTREMITIES: Normal appearance, no pedal edema. NEURO: Alert and answering questions appropriately. PSYCH: Normal affect. Const Vital Signs: 12/14/23 12:33 12/14/23 14:32 12/14/23 15:19 Temperature 98.7 F Temperature Source Temporal Pulse Rate 46 L 52 L 50 L Respiratory Rate 18 16 16 Blood Pressure 106/48 L 88/44 L 99/57 L Blood Pressure Mean 67 58 71 Pulse Ox 100 98 99 Oxygen Delivery Method Room Air Room Air Room Air 12/14/23 16:31 Temperature 98.2 F Temperature Source Pulse Rate 54 L Respiratory Rate 16 Blood Pressure 110/68 Blood Pressure Mean 82 Pulse Ox 99 Oxygen Delivery Method <Dr. Marlee Hurtado DO - Last Filed: 12/16/23 07:28> Physical Exam Const Vital Signs: 12/14/23 12:33 12/14/23 14:32 12/14/23 15:19 Temperature 98.7 F Temperature Source Temporal Pulse Rate 46 L 52 L 50 L Respiratory Rate 18 16 16 Blood Pressure 106/48 L 88/44 L 99/57 L Blood Pressure Mean 67 58 71 Pulse Ox 100 98 99 Oxygen Delivery Method Room Air Room Air Room Air 12/14/23 16:31 Temperature 98.2 F Temperature Source Pulse Rate 54 L Respiratory Rate 16 Blood Pressure 110/68 Blood Pressure Mean 82 Pulse Ox 99 Oxygen Delivery Method MDM <JOSE Storm - Last Filed: 12/14/23 16:59> [facility] MDM Narrative Medical decision making narrative: Differential: Appendicitis, ovarian etiology, UTI among others Patient has right lower quadrant abdominal/pelvic pain. She has had recent irregular menses but no bleeding over the last 2 days. She appears well and nontoxic and is afebrile with stable vital signs. She is mildly bradycardic but in a normal rhythm. Abdomen is soft with RLQ tenderness without peritoneal signs. Labs show white count of 12.3, otherwise normal. Urinalysis negative. She has had a tubal ligation so I did not order test. CT scan shows no acute findings. It notes incidental left-sided ovarian cyst but she does not have pain on the left. A follow-up transvaginal ultrasound shows left-sided hemorrhagic ovarian cysts. After IV morphine and Toradol patient feels improved. On repeat abdominal exam she is nontender. She is comfortable taking [id number] Tylenol Motrin and following up with her [employer]. Return precautions discussed and she was discharged in stable condition. Lab Data Attestation: I reviewed the patient's lab results. Labs: Laboratory Results - last 24 hr 12/14/23 12/14/23 12:53 13:03 WBC 12.3 H RBC 3.95 L Hgb 12.6 Hct 37.9 MCV 95.9 MCH 31.9 MCHC 33.2 RDW Std Deviation 46.3 H RDW Coeff of Shikha 13.1 Plt Count 231 MPV 10.6 Immature Gran % (Auto) 0.200 Neut % (Auto) 85.2 H Lymph % (Auto) 8.4 L [place] % (Auto) 5.6 Eos % (Auto) 0.3 Baso % (Auto) 0.3 Absolute Neuts (auto) 10.5 H Absolute Lymphs (auto) 1.03 Nucleated RBC % 0 Sodium 139 Potassium 3.6 Chloride 105 Carbon Dioxide 27.0 Anion Gap 7 BUN 12 Creatinine 0.68 Estim Creat Clear Calc 116.77 Est GFR (MDRD) Af Amer 119 Est GFR (MDRD) Non-Af 99 BUN/Creatinine Ratio 17.6 Glucose 106 Calcium 8.2 L Urine Color Yellow Urine Clarity Sl. Cloudy Urine pH 5.0 Ur Specific [place] 1.020 Urine Protein Negative Urine Glucose (UA) Normal Urine Ketones Negative Urine Occult Blood 25 H Urine Nitrite Negative Urine Bilirubin Negative Urine Urobilinogen Normal Ur Leukocyte Esterase Negative Urine RBC 0-5 SEEN Urine WBC 0 SEEN Ur Squamous Epith Cells 0-5 SEEN Urine Bacteria 0 SEEN Urine Mucus 0 SEEN Radiography Diagnostic Testing: Clinical Impression(s) from Imaging Studies Abdomen/Pelvis CT 12/14/23 12:54 IMPRESSION: Left ovarian cysts. Electronically Signed: Gabriel Prince MD at 13:39 EDT , Transvaginal US 12/14/23 14:27 IMPRESSION: Hemorrhagic left ovarian cysts which are likely physiologic in nature. As above. Electronically Signed: Spencer Palma MD at 15:37 EDT , <Dr. Marlee Hurtado, DO - Last Filed: 12/16/23 07:28> [facility] Lab Data Labs: Laboratory Results - last 24 hr 12/14/23 12/14/23 12:53 13:03 WBC 12.3 H RBC 3.95 L Hgb 12.6 Hct 37.9 MCV 95.9 MCH 31.9 MCHC 33.2 RDW Std Deviation 46.3 H RDW Coeff of Shikha 13.1 Plt Count 231 MPV 10.6 Immature Gran % (Auto) 0.200 Neut % (Auto) 85.2 H Lymph % (Auto) 8.4 L [place] % (Auto) 5.6 Eos % (Auto) 0.3 Baso % (Auto) 0.3 Absolute Neuts (auto) 10.5 H Absolute Lymphs (auto) 1.03 Nucleated RBC % 0 Sodium 139 Potassium 3.6 Chloride 105 Carbon Dioxide 27.0 Anion Gap 7 BUN 12 Creatinine 0.68 Estim Creat Clear Calc 116.77 Est GFR (MDRD) Af Amer 119 Est GFR (MDRD) Non-Af 99 BUN/Creatinine Ratio 17.6 Glucose 106 Calcium 8.2 L Urine Color Yellow Urine Clarity Sl. Cloudy Urine pH 5.0 Ur Specific [place] 1.020 Urine Protein Negative Urine Glucose (UA) Normal Urine Ketones Negative Urine Occult Blood 25 H Urine Nitrite Negative Urine Bilirubin Negative Urine Urobilinogen Normal Ur Leukocyte Esterase Negative Urine RBC 0-5 SEEN Urine WBC 0 SEEN Ur Squamous Epith Cells 0-5 SEEN Urine Bacteria 0 SEEN Urine Mucus 0 SEEN Radiography Diagnostic Testing: Clinical Impression(s) from Imaging Studies Abdomen/Pelvis CT 12/14/23 12:54 IMPRESSION: Left ovarian cysts. Electronically Signed: Gabriel Prince MD at 13:39 EDT , Transvaginal US 12/14/23 14:27 IMPRESSION: Hemorrhagic left ovarian cysts which are likely physiologic in nature. As above. Electronically Signed: Spencer Palma MD at 15:37 EDT , Additional Tests and Interventions Additional Tests or Interventions: I have personally performed a face to face assessment of the patient and have reviewed the TIFFANY Note. I performed a substantive portion of the visit including all aspects of the following. My franks findings include: History is Patient is presenting with pelvic/right lower quadrant abdominal pain. Has a history of irregular menses and prior uterine ablation. She is quite tearful but states she is also been having a lot of stress in her life. Fluids given IV morphine and Toradol with improvement of her symptoms. Patient is found to have a hemorrhagic left ovarian cyst. Is possible to be causing her symptoms. She is hemodynamically stable in the emergency room. She denies feeling lightheaded. Low suspicion for acute hemorrhage/peritonitis. On repeat abdominal exam abdomen is soft and nontender with no peritoneal signs. Patient will be discharged home. Is offered prescription for pain control (such as Perkins or Percocet) but patient declines states he rather just take ibuprofen or Tylenol. Encouraged to follow-up with her [employer]. Other additions or changes: [None] Discharge Plan Triage Chief Complaint: Abd Pain ED Midlevel Provider: Amelie Kaufman ED Provider: Marlee Hurtado Dx/Rx/DC Orders Clinical Impression: Abdominal pain, right lower quadrant, Ovarian cyst Instructions: Abdominal Pain, ED Ovarian Cyst Prescriptions: No Action levothyroxine 125 mcg Tablet 137 mcg PO DAILY Xarelto DVT-PE Treat 30d Start 15 mg (42)- 20 mg (9) tablets,dose pack See Rx Instructions .ROUTE .COMPLEX Qty: 51 0RF Rx Instructions: take one-15 mg tablet twice daily for 21 days, then one-20 mg tablet once daily; must take with meal/food Primary Care Provider: Jaz Turner Referrals: Jaz Turner, [employer] [Primary Care Provider] - Activity Restrictions/Additional Instructions: Follow up with OBGYN for ovarian cysts. Take tylenol or ibuprofen as needed. Return if symptoms worsen. Print Language: [place] Disposition Disposition: Home, Self Care Discharge Date/Time: 12/14/23 16:32
--- NOTE | 2023-12-14 12:54 | CT_ITS ---
STUDY: CT ABDOMEN AND PELVIS WITH CONTRAST REASON FOR EXAM: Female, 47 years old. Right lower quadrant pain. RADIATION DOSAGE (If Supplied By Facility): CTDIvol = ( 15.29 ) mGy, DLP = ( 712.96 ) mGycm TECHNIQUE: Transaxial images were obtained from the dome of the diaphragm to the symphysis pubis without oral contrast. IV 100mL Isovue-300 was administered. Sagittal and coronal images were reconstructed. Individualized dose optimization techniques were used for this CT. COMPARISON: None. FINDINGS: The visualized lung bases are unremarkable. The visualized portions of the heart are within normal limits. Normal liver. Normal gallbladder and extrahepatic biliary system. Normal spleen. Normal pancreas. Normal bilateral adrenal glands. Normal right kidney. Normal left kidney. Normal visualized stomach. Normal small intestine. Normal colon. The appendix is visualized and appears normal. Normal abdominal aorta. Normal inferior vena cava. Normal retroperitoneum. Normal urinary bladder. There are 2 adjacent cysts in the left ovary. The first cyst measures 2.8 cm x 3.2 cm. The second cyst measures 2.5 cm x 2.8 cm. Normal abdominal wall. Normal osseous structures. CT/Abdomen/Pelvis W IV Cont ONLY IMPRESSION: Left ovarian cysts. Electronically Signed: Gabriel Prince MD at 13:39 EDT ,
[2023-12-14 12:59] LABS: Absolute Lymphocyte Count 1.03 X10^3/uL (0.83-4.51); Absolute Neutrophil Count 10.5 X10^3/uL (2.0-7.7); Basophil# 0.04 X10^3/uL; Basophil% 0.3 % (0-1); Eosinophil# 0.04 X10^3/uL; Eosinophils% 0.3 % (0-5); Hematocrit 37.9 % (37-47); Hemoglobin 12.6 g/dL (12.0-15.0); Lymphocyte # 1.03 X10^3/ul (0.83-4.51); Lymphocyte % 8.4 % (19-41); Mean Corp Hgb Conc 33.2 g/dL (32-36); Mean Corpuscular Hgb 31.9 pg (27.0-32.0); Mean Corpuscular Volume 95.9 fL (81-99); Mean Platelet Vol. 10.6 fl (6.2-12.0); Monocyte# 0.69 X10^3/uL; Monocyte% 5.6 % (0-10); NRBC Flagged by Analyzer 0 % (0-5); Neutrophil % 85.2 % (47-70); Platelet Count 231 K/mm3 (150-450); RBC Distribution Width CV 13.1 % (11.6-14.6); RBC Distribution Width SD 46.3 fl (35.1-43.9); Red Blood Count 3.95 M/mm3 (4.2-5.4); White Blood Count 12.3 K/mm3 (4.4-11.0)
[2023-12-14] MEDS: Ondansetron 4 MG/2 ML Vial IV (13:02)
[2023-12-14] MEDS: Morphine 4 MG/ML Syringe IV (13:03)
[2023-12-14 13:07] LABS: Bacteria 0 SEEN /hpf (None Seen); Mucous, Urine 0 SEEN /hpf (<or=2+); White Blood Cells 0 SEEN /hpf (0-5)
[2023-12-14 13:08] LABS: Color, Urine Yellow (Yellow); Glucose, Dipstick Normal (Normal); Ketone-Dipstick Negative (Negative); Leukocyte Esterase-Dipstick Negative /ul (Negative); Nitrite-Dipstick Negative (Negative); Occult Blood-Urine 25 /ul (Negative); Protein-Dipstick Negative (Negative); Urine Bilirubin Dipstick Negative (Negative); Urine Clarity Sl. Cloudy (Clear); Urine Urobilinogen Normal (Normal)
[2023-12-14 13:11] LABS: Anion Gap 7 (5-15); BUN 12 mg/dL (7-18); BUN/Creat Ratio 17.6 RATIO (10-20); Calcium,Total 8.2 mg/dL (8.5-10.1); Chloride 105 mmol/L (98-107); Creatinine, Serum 0.68 mg/dL (0.55-1.02); EST Glomerular Filtration Rate 99 mL/min (>60); Est Glom Filt Rate - Afr Amer 119 mL/min (>60); Estimated Creatinine Clearance 116.77 ml/min; Glucose 106 mg/dL (74-106); Potassium 3.6 mmol/L (3.5-5.1); Sodium Level 139 mmol/L (136-145)
[2023-12-14 13:14] LABS: Red Blood Cells-Urine 0-5 SEEN /hpf (0-5); Squamous Epithelial Cells - UA 0-5 SEEN /hpf (5-10)
--- NOTE | 2023-12-14 14:27 | US_ITS ---
EXAM: US PELVIS TRANSVAGINAL CLINICAL INDICATION: rlq pain TECHNIQUE: Endovaginal pelvic ultrasound was performed with grayscale and color Doppler imaging. Endovaginal imaging was used for better evaluation of the endometrium and adnexa. COMPARISON: No relevant prior studies available. FINDINGS: UTERUS/CERVIX: Uterus measures 10.5 x 6.3 x 5.2 cm. Endometrial thickness is 8 mm. 16 mm cystic structure noted along the endometrium in the lower uterine segment may represent endometrial glandular cyst. RIGHT OVARY: Right ovary measures 2.5 x 2.0 x 1.3 cm. Blood flow is present in the right ovary. LEFT OVARY: 3 cm and 2.4 cm complex left ovarian cystic lesion seen suggestive of hemorrhagic cysts. Left ovary measures 5.8 x 5.4 x 2.4 cm. Blood flow is present in the left ovary. FREE FLUID: None. US/Transvaginal Non- IMPRESSION: Hemorrhagic left ovarian cysts which are likely physiologic in nature. As above. Electronically Signed: Spencer Palma MD at 15:37 EDT ,
[2023-12-14 14:32] VITALS: BP 88/44; PULSE 52; RESP 16; O2SAT 98
[2023-12-14] MEDS: Ketorolac 15 MG/ML Vial IV (14:32)
[2023-12-14 15:19] VITALS: BP 99/57; PULSE 50; RESP 16; O2SAT 99
[2023-12-14 16:31] VITALS: BP 110/68; PULSE 54; RESP 16; TEMP 36.8; O2SAT 99
== END 2023-12-14 16:32 | disposition home or self-care (01) ==
PROVIDERS: Physician Assistant; Emergency Provider Emergency Medicine; PCP Nurse Practitioner Family; Visit Provider Emergency Medicine
DX: R10.31 Right lower quadrant pain (principal); N83.202 Unspecified ovarian cyst, left side; N92.6 Irregular menstruation, unspecified; R11.0 Nausea; E07.9 Disorder of thyroid, unspecified; F17.210 Nicotine dependence, cigarettes, uncomplicated; Z79.01 Long term (current) use of anticoagulants; Z79.890 Hormone replacement therapy; Z98.51 Tubal ligation status
CPT/HCPCS: 74177; 76830; 80048; 81001; 85025; 96374; 96375; 99283; J7030; Q9967; A4216; J2405